=== PATIENT | female | born 1990 | race Two or more races ===

== ENCOUNTER 2016-11-20 12:29 | Emergency (ER) | payer BC, OTHER ==
[~2016-11-20] VITALS: Ht 167.6 cm; Wt 78.1 kg
[2016-11-20 12:34] VITALS: BP 102/70
[2016-11-20] MEDS ORDERED: KETOROLAC 30 MG/1 ML ONE (13:24)
[2016-11-20] MEDS ORDERED: KETOROLAC 30 MG/1 ML IM ONE (13:30)
== END 2016-11-20 16:10 | disposition home or self-care (01) ==
LOC: ED 15:15
DX: S16.1XXA Strain of muscle, fascia and tendon at neck level, initial encounter (principal); M25.532 Pain in left wrist; M25.512 Pain in left shoulder; V49.49XA Driver injured in collision with other motor vehicles in traffic accident, initial encounter; Y93.I9 Activity, other involving external motion; Y92.488 Other paved roadways as the place of occurrence of the external cause; Y99.8 Other external cause status
CPT/HCPCS: 71010; 72020; 72050; 73030; 73080; 73110; 96372; 99284; J1885

== ENCOUNTER 2018-02-23 08:30 | Inpatient (IN) | payer BC ==
[2018-02-22] MEDS: OXYTOCIN 30U/ 0.9% NaCL 500ML 500 ML IV SCH (20:00)
[~2018-02-23] VITALS: Ht 170.2 cm; Wt 93.8 kg
[2018-02-23] MEDS ORDERED: PREN1TAB60 PO (08:36)
[2018-02-23 08:38] VITALS: BP 111/58
[2018-02-23] MEDS ORDERED: NEWBORN KIT ONE (08:42)
[2018-02-23] MEDS ORDERED: MISOPROSTOL 200 MCG TABLET ONE (08:46)
[2018-02-23] MEDS ORDERED: OXYTOCIN 30U/ 0.9% NaCL 500ML 500 ML ONE ×2 (08:46→15:48)
[2018-02-23] MEDS ORDERED: LIDOCAINE 1%, 20ML ONE (08:46)
[2018-02-23] MEDS: LACTATED RINGERS 1,000 ML IV SCH ×4 (09:00→20:57)
[2018-02-23] MEDS ORDERED: OXYTOCIN 30U/ 0.9% NaCL 500ML 500 ML IV PRN (09:13)
[2018-02-23] MEDS ORDERED: OXYTOCIN 30U/ 0.9% NaCL 500ML 500 ML IV ONE (09:13)
[2018-02-23] MEDS ORDERED: D5%-LACTATED RINGERS 1,000 ML IV SCH (09:13)
[2018-02-23] MEDS ORDERED: FENTANYL PF 100 MCG/2ML IVPush PRN (09:30)
[2018-02-23] MEDS ORDERED: FENTANYL PF 100 MCG/2ML IV PRN (09:30)
[2018-02-23] MEDS ORDERED: ALUMINUM/MAG/SIMETHICONE 30 ML UDC PO PRN (09:30)
[2018-02-23 09:47] LABS: BASOPHILS # (AUTO) 0.12 x10^3/uL (0-0.1); BASOPHILS % (AUTO) 1 % (0-1); EOSINOPHILS # (AUTO) 0.16 x10^3/uL (0-0.4); EOSINOPHILS % (AUTO) 2 % (1-7); LYMPHOCYTES # (AUTO) 1.74 x10^3/uL (1-3.4); LYMPHOCYTES % (AUTO) 18 % (22-44); MD NO; MEAN CORPUSCULAR HEMOGLOBIN 25.2 pg (27.0-34.8); MEAN CORPUSCULAR HGB CONC 32.7 g/dL (32.4-35.8); MEAN CORPUSCULAR VOLUME 77.2 fL (80-100); MEAN PLATELET VOLUME 9.8 fL (7.4-10.4); MONOCYTES # (AUTO) 0.57 x10^3/uL (0.2-0.8); MONOCYTES % (AUTO) 6 % (2-9); NEUTROPHILS # (AUTO) 7.28 x10^3/uL (1.8-6.8); NEUTROPHILS % (AUTO) 74 % (42-75); PLATELET COUNT 202 x10^3/uL (130-400); RED BLOOD COUNT 4.31 x10^6/uL (3.82-5.3); RED CELL DISTRIBUTION WIDTH 15.9 % (9.6-15.2)
[2018-02-23] MEDS ORDERED: FENTANYL/BUPIV./NS/PF 250 ML EPIDCONT SCH ×2 (10:10→12:57)
[2018-02-23] MEDS ORDERED: FENTANYL PF 500 MCG, BUPIVACAINE/PF 0.5%, 30ML 62.5 ML in SODIUM CHLORIDE 0.9% 177.5 ML EPIDCONT SCH (10:30)
[2018-02-23] MEDS ORDERED: NALOXONE 0.4 MG/ML, 1ML IVPush PRN (13:00)
[2018-02-23] MEDS ORDERED: BUPIVACAINE 0.25% ONE (13:00)
[2018-02-23] MEDS ORDERED: EPHEDRINE 50 MG/ML, 1ML IVPush PRN (13:00)
[2018-02-23] MEDS ORDERED: LACTATED RINGERS 1,000 ML IVBOLUS PRN (13:00)
[2018-02-23] MEDS ORDERED: MISOPROSTOL 200 MCG TABLET PR ONE (16:00)
[2018-02-23] MEDS ORDERED: METOCLOPRAMIDE 5 MG/ML, 2ML IV PRN (17:30)
[2018-02-23] MEDS ORDERED: MISOPROSTOL 200 MCG TABLET PR PRN (17:30)
[2018-02-23] MEDS ORDERED: CARBOPROST TROMETHAMINE 250 MCG/ML, 1ML IM PRN (17:30)
[2018-02-23] MEDS ORDERED: ACETAMINOPHEN 325 MG TABLET PO PRN (17:30)
[2018-02-23] MEDS ORDERED: ONDANSETRON 2MG/ML, 2ML IV PRN (17:30)
[2018-02-23] MEDS ORDERED: OXYcodone IR 5MG TABLET PO PRN (17:30)
[2018-02-23 18:20] VITALS: BP 100/66
[2018-02-23] MEDS: IBUPROFEN 600 MG TABLET PO PRN (19:31)
[2018-02-23] MEDS: OXYcodone/APAP 5/325MG TABLET PO PRN (19:31)
[2018-02-23 20:00] VITALS: BP 104/68
[2018-02-24 00:04] VITALS: BP 95/52
[2018-02-24] MEDS: DOCUSATE 100 MG CAPSULE PO PRN ×2 (00:13→09:18)
[2018-02-24] MEDS: OXYcodone/APAP 5/325MG TABLET PO PRN ×4 (00:14→15:02)
[2018-02-24] MEDS: IBUPROFEN 600 MG TABLET PO PRN ×3 (03:00→15:02)
[2018-02-24] MEDS: OXYTOCIN 30U/ 0.9% NaCL 500ML 500 ML IV SCH (03:05)
[2018-02-24 05:10] VITALS: BP 102/63
[2018-02-24 05:30] LABS: BASOPHILS # (AUTO) 0.03 x10^3/uL (0-0.1); BASOPHILS % (AUTO) 0 % (0-1); EOSINOPHILS # (AUTO) 0.29 x10^3/uL (0-0.4); EOSINOPHILS % (AUTO) 2 % (1-7); LYMPHOCYTES # (AUTO) 2.38 x10^3/uL (1-3.4); LYMPHOCYTES % (AUTO) 16 % (22-44); MD NO; MEAN CORPUSCULAR HGB CONC 33.8 g/dL (32.4-35.8); MEAN CORPUSCULAR VOLUME 77.1 fL (80-100); MEAN PLATELET VOLUME 9.5 fL (7.4-10.4); MONOCYTES # (AUTO) 1.09 x10^3/uL (0.2-0.8); MONOCYTES % (AUTO) 8 % (2-9); NEUTROPHILS # (AUTO) 10.74 x10^3/uL (1.8-6.8); NEUTROPHILS % (AUTO) 74 % (42-75); PLATELET COUNT 181 x10^3/uL (130-400); RED BLOOD COUNT 3.59 x10^6/uL (3.82-5.3); RED CELL DISTRIBUTION WIDTH 15.9 % (9.6-15.2)
[2018-02-24] MEDS: LACTATED RINGERS 1,000 ML IV SCH (05:45)
[2018-02-24 07:25] VITALS: BP 91/57
[2018-02-24] MEDS ORDERED: IBUP-1222 PO (07:52)
[2018-02-24] MEDS ORDERED: DOCU-131 PO (07:52)
[2018-02-24] MEDS ORDERED: OXYC-302 PO (07:52)
[2018-02-24] MEDS ORDERED: FERR325T5 PO (07:54)
[2018-02-24] MEDS ORDERED: PRENATAL VIT/IRON/FA 1 EACH TABLET PO SCH (09:00)
== END 2018-02-24 17:00 | disposition home or self-care (01) | DRG 807 ==
LOC: LDIP 08:30 → 2NW 17:42
PROVIDERS: ADMIT Obstetrics & Gynecology; ATTEND Obstetrics & Gynecology
PROC: 10E0XZZ Delivery of Products of Conception, External Approach (ICD-10-PCS; principal; 2018-02-23)
PROC: 3E0R3BZ Introduction of Anesthetic Agent into Spinal Canal, Percutaneous Approach (ICD-10-PCS; 2018-02-23)
PROC: 00HU33Z Insertion of Infusion Device into Spinal Canal, Percutaneous Approach (ICD-10-PCS; 2018-02-23)
PROC: 10907ZC Drainage of Amniotic Fluid, Therapeutic from Products of Conception, Via Natural or Artificial Opening (ICD-10-PCS; 2018-02-23)
PROC: 3E033VJ Introduction of Other Hormone into Peripheral Vein, Percutaneous Approach (ICD-10-PCS; 2018-02-23)
PROC: 0HQ9XZZ Repair Perineum Skin, External Approach (ICD-10-PCS; 2018-02-23)
DX: O70.0 First degree perineal laceration during delivery (principal); Z37.0 Single live birth; Z90.49 Acquired absence of other specified parts of digestive tract; Z3A.39 39 weeks gestation of pregnancy
CPT/HCPCS: 36415; 85025; 86850; 86900; G0378; J3010; J3490; J2590; J7050; J7120